=== PATIENT | female | born 1955 | race Two or more races ===

== ENCOUNTER 2022-04-24 14:06 | Outpatient (CLI) | payer MEDICARE, OTHER | END 2022-04-24 23:59 | disposition home or self-care (01) | LOC: RAD 14:06 | PROVIDERS: ATTEND Internal Medicine Cardiovascular Disease | DX: I05.8 Other rheumatic mitral valve diseases (principal); I25.10 Atherosclerotic heart disease of native coronary artery without angina pectoris | CPT/HCPCS: 93306 ==